=== PATIENT | female | born 1975 | race Caucasian/White ===

== ENCOUNTER 2017-12-11 18:18 | Emergency (ER) | payer MEDICAID ==
[~2017-12-11 18:18] MED LIST: FLO0.4C PO; GENT5DRO4 EACHEYE; HYDR-569 PO; NAPR500T6 PO; ONDA4TAB6 PO; ONDA8TAB9 PO
[2017-12-12] MEDS ORDERED: SULF1TAB49 PO (08:55)
== END 2017-12-11 19:46 | disposition left against medical advice (07) ==
LOC: ER 18:19
DX: M79.606 Pain in leg, unspecified (principal); Z53.21 Procedure and treatment not carried out due to patient leaving prior to being seen by health care provider

== ENCOUNTER 2017-12-12 08:36 | Emergency (ER) | payer MEDICAID ==
[~2017-12-12] VITALS: Ht 160 cm; Wt 100.7 kg
[2017-12-12] MEDS ORDERED: SULF1TAB49 PO (08:55)
[2017-12-12 09:17] VITALS: BP 146/92
== END 2017-12-12 09:18 | disposition home or self-care (01) ==
LOC: ER 08:36
DX: L03.115 Cellulitis of right lower limb (principal); L02.415 Cutaneous abscess of right lower limb; G89.29 Other chronic pain
CPT/HCPCS: 99283

== ENCOUNTER 2018-05-10 10:03 | Emergency (ER) | payer MEDICAID ==
[~2018-05-10] VITALS: Ht 152.4 cm; Wt 93.0 kg
[2018-05-10 10:07] VITALS: BP 136/65
== END 2018-05-10 10:30 | disposition home or self-care (01) ==
LOC: ER 10:03
DX: M76.61 Achilles tendinitis, right leg (principal); G89.29 Other chronic pain; Z79.899 Other long term (current) drug therapy
CPT/HCPCS: 99284; A6449

== ENCOUNTER 2018-07-07 16:21 | Emergency (ER) | payer MEDICAID ==
[~2018-07-07] VITALS: Ht 160 cm; Wt 102.6 kg
[~2018-07-07 16:21] MED LIST changes: +FLUC150T66 PO; +MYCOL30CR TP
[2018-07-07 16:32] VITALS: BP 140/83
[2018-07-07] MEDS ORDERED: ACYC400T PO (17:29)
== END 2018-07-07 18:00 | disposition home or self-care (01) ==
LOC: ER 16:21
DX: N89.8 Other specified noninflammatory disorders of vagina (principal); G89.29 Other chronic pain; Z79.2 Long term (current) use of antibiotics; Z79.899 Other long term (current) drug therapy
CPT/HCPCS: 99283

== ENCOUNTER 2019-01-16 08:59 | Emergency (ER) | payer MEDICAID ==
[~2019-01-16] VITALS: Ht 160 cm; Wt 100.0 kg
[~2019-01-16 08:59] MED LIST changes: -FLUC150T66 PO; +HYDR-4383 PO; -HYDR-569 PO
[2019-01-16 09:06] VITALS: BP 147/101
[2019-01-16] MEDS ORDERED: LIDOcaine 1% w/epiNEPHrine 1:200,000 30ml vial IM ONE (09:25)
--- NOTE | 2019-01-16 10:07 | NUR ---
PT GIVEN PANTIES AND FEMALE PAD FOR DRAINAGE COLLECTION AFTER I/D TO VAGINAL CYST. PT TOLERATES PROCEDURE WELL. AT BEDSIDE.
[2019-01-16] MEDS ORDERED: SULF1TAB49 PO (10:08)
[2019-01-16] MEDS ORDERED: CEPH-572 PO (10:08)
--- NOTE | 2019-01-16 10:10 | NUR ---
PT TAKEN BACK TO ROOM 12.
== END 2019-01-16 10:37 | disposition home or self-care (01) ==
LOC: ER 09:00
DX: N76.0 Acute vaginitis (principal); G89.29 Other chronic pain; Z98.890 Other specified postprocedural states; Z79.899 Other long term (current) drug therapy
CPT/HCPCS: 56405; 99283; J3490

== ENCOUNTER 2019-06-11 20:57 | Emergency (ER) | payer MEDICAID ==
[~2019-06-11] VITALS: Ht 157.5 cm; Wt 101.0 kg
[2019-06-11] MEDS ORDERED: cloNIDine 0.1 mg tablet PO ONE (21:30)
[2019-06-11] MEDS ORDERED: metoclopramide 5 mg/ml inj IM ONE (21:30)
[2019-06-11] MEDS ORDERED: diphenhydrAMINE 50 mg/ml inj IM ONE (21:30)
[2019-06-11] MEDS ORDERED: ketorolac trometh. 30mg/ml inj. IV ONE (21:30)
[2019-06-11] MEDS ORDERED: ketorolac tromethamine 15mg/ml inj. IM ONE (21:40)
--- NOTE | 2019-06-11 22:14 | NUR ---
PT DENIES ANY HEADACHE AT THIS TIME 010.
[2019-06-11 22:21] VITALS: BP 151/95
== END 2019-06-11 22:20 | disposition home or self-care (01) ==
LOC: ER 20:57
DX: R51 Headache (principal); H53.149 Visual discomfort, unspecified; R11.0 Nausea; G89.29 Other chronic pain; Z98.890 Other specified postprocedural states; Z79.899 Other long term (current) drug therapy
CPT/HCPCS: 70450; 96372; 99284; J1200; J1885; J2765

== ENCOUNTER 2019-06-27 16:36 | Emergency (ER) | payer MEDICAID ==
[~2019-06-27] VITALS: Ht 165.1 cm; Wt 100.0 kg
[2019-06-27 16:59] VITALS: BP 136/83
[2019-06-27] MEDS ORDERED: AZIT250T PO (17:25)
[2019-06-27] MEDS ORDERED: BENZ-16 PO (17:25)
== END 2019-06-27 18:01 | disposition home or self-care (01) ==
LOC: ER 16:36
DX: J06.9 Acute upper respiratory infection, unspecified (principal); R11.2 Nausea with vomiting, unspecified; G89.29 Other chronic pain; Z98.890 Other specified postprocedural states; Z79.899 Other long term (current) drug therapy
CPT/HCPCS: 99283

== ENCOUNTER 2019-08-03 15:36 | Emergency (ER) | payer MEDICAID ==
[~2019-08-03] VITALS: Ht 160 cm; Wt 95.0 kg
[~2019-08-03 15:36] MED LIST changes: +AZIT250T PO; +BENZ-16 PO
[2019-08-03] MEDS ORDERED: aspirin 325mg tablet PO ONE (16:00)
[2019-08-03 16:13] LABS: BASOPHILS # (AUTO) 0.1 X10'3 (0-0.2); BASOPHILS % (AUTO) 1.2 % (0-1); EOSINOPHILS # (AUTO) 0.1 X10'3 (0-0.9); EOSINOPHILS % (AUTO) 1.2 % (0-6); HEMATOCRIT 36.5 % (35.0-45.0); HEMOGLOBIN 12.5 g/dl (12.0-16.0); LYMPHOCYTES # (AUTO) 2.1 X10'3 (1.1-4.8); LYMPHOCYTES % (AUTO) 24.2 % (21-51); MEAN CORPUSCULAR HEMOGLOBIN 27.1 PG (27.0-31.0); MEAN CORPUSCULAR HGB CONC 34.2 g/dL (33.0-36.5); MEAN CORPUSCULAR VOLUME 79.3 FL (78-98); MEAN PLATELET VOLUME 7.8 FL (7.4-10.4); MONOCYTES # (AUTO) 0.6 X10'3 (0-0.9); MONOCYTES % (AUTO) 6.5 % (2-12); NEUTROPHILS # (AUTO) 5.8 X10'3 (1.8-7.7); NEUTROPHILS % (AUTO) 66.9 % (42-75); PLATELET COUNT 274 X10'3 (140-440); RED CELL DISTRIBUTION WIDTH 15.7 % (11.5-14.5); WHITE BLOOD COUNT 8.7 X10'3 (4.5-11.0)
[2019-08-03 16:23] LABS: ALBUMIN 3.6 G/DL (3.4-5.0); ALBUMIN/GLOBULIN RATIO 0.9 (1.1-1.5); ALKALINE PHOSPHATASE 103 IU/L (46-116); ANION GAP 9 (8-16); BILIRUBIN,TOTAL 0.3 MG/DL (0.1-1.0); BLOOD UREA NITROGEN 9 MG/DL (7-18); BUN/CREATININE RATIO 10.6 (6.6-38.0); CALCIUM 9.1 MG/DL (8.5-10.1); CHLORIDE 106 MMOL/L (99-107); CREATININE 0.85 MG/DL (0.40-0.90); SODIUM 141 MMOL/L (135-145); TOTAL CARBON DIOXIDE 25.6 MMOL/L (24-32); TOTAL PROTEIN 7.8 G/DL (6.4-8.2); eGFR 73 ML/MIN
[2019-08-03 16:24] LABS: GLUCOSE 114 MG/DL (70-104); POTASSIUM 3.7 MMOL/L (3.5-5.1)
[2019-08-03 16:25] LABS: PARTIAL THROMBOPLASTIN TIME 26 SECONDS (22-32)
[2019-08-03 16:39] LABS: ALANINE AMINOTRANSFERASE 24 U/L (12-78); ASPARTATE AMINO TRANSFERASE 23 U/L (10-37)
[2019-08-03 17:12] VITALS: BP 143/102
== END 2019-08-03 17:18 | disposition home or self-care (01) ==
LOC: ER 15:36
DX: R07.89 Other chest pain (principal); R20.2 Paresthesia of skin; G89.29 Other chronic pain; Z98.890 Other specified postprocedural states; Z79.899 Other long term (current) drug therapy
CPT/HCPCS: 36415; 71045; 80053; 84484; 85025; 85610; 85730; 93005; 99284

== ENCOUNTER 2020-03-17 21:34 | Emergency (ER) | payer MEDICAID ==
[~2020-03-17] VITALS: Ht 157.5 cm; Wt 101.5 kg
[2020-03-17 22:01] LABS: BASOPHILS # (AUTO) 0.1 X10'3 (0-0.2); BASOPHILS % (AUTO) 0.9 % (0-1); EOSINOPHILS # (AUTO) 0.1 X10'3 (0-0.9); EOSINOPHILS % (AUTO) 1.2 % (0-6); HEMATOCRIT 35.6 % (35.0-45.0); HEMOGLOBIN 11.8 g/dl (12.0-16.0); LYMPHOCYTES # (AUTO) 2.3 X10'3 (1.1-4.8); LYMPHOCYTES % (AUTO) 27.6 % (21-51); MEAN CORPUSCULAR HEMOGLOBIN 25.3 PG (27.0-31.0); MEAN CORPUSCULAR HGB CONC 33.2 g/dL (33.0-36.5); MEAN CORPUSCULAR VOLUME 76.1 FL (78-98); MEAN PLATELET VOLUME 7.7 FL (7.4-10.4); MONOCYTES # (AUTO) 0.6 X10'3 (0-0.9); MONOCYTES % (AUTO) 7.5 % (2-12); NEUTROPHILS # (AUTO) 5.3 X10'3 (1.8-7.7); NEUTROPHILS % (AUTO) 62.8 % (42-75); PLATELET COUNT 265 X10'3 (140-440); RED BLOOD COUNT 4.68 X10'6 (4.20-5.60); RED CELL DISTRIBUTION WIDTH 18.9 % (11.5-14.5); WHITE BLOOD COUNT 8.4 X10'3 (4.5-11.0)
[2020-03-17 22:12] LABS: TOTAL CARBON DIOXIDE 25.8 MMOL/L (24-32)
--- NOTE | 2020-03-17 22:30 | NUR ---
PT TO THE BATHROOM INDEPENDENTLY TO VOID ,FOR SPECIMAN , AMBULATED WITH STEADY GAIT .
[2020-03-17] MEDS ORDERED: hydrocortisone acetate 25mg rectal suppository RC PRN (22:35)
[2020-03-17] MEDS ORDERED: ondansetron 4mg rapidly disintigrating tab PO ONE (22:35)
[2020-03-17] MEDS ORDERED: pantoprazole 40mg Tablet.DR PO ONE (22:35)
[2020-03-17 22:36] LABS: ALANINE AMINOTRANSFERASE 18 U/L (12-78); ALBUMIN 3.7 G/DL (3.4-5.0); ALKALINE PHOSPHATASE 102 IU/L (46-116); ANION GAP 9 (8-16); ASPARTATE AMINO TRANSFERASE 13 U/L (10-37); BILIRUBIN,TOTAL 0.3 MG/DL (0.1-1.0); BLOOD UREA NITROGEN 11 MG/DL (7-18); BUN/CREATININE RATIO 12.2 (6.6-38.0); CALCIUM 9.1 MG/DL (8.5-10.1); CHLORIDE 107 MMOL/L (99-107); GLUCOSE 131 MG/DL (70-104); POTASSIUM 3.7 MMOL/L (3.5-5.1); SODIUM 142 MMOL/L (135-145); TOTAL PROTEIN 7.5 G/DL (6.4-8.2); eGFR 69 ML/MIN
[2020-03-17 22:42] LABS: CLARITY,URINE CLOUDY (Clear); COLOR,URINE YELLOW (Yellow); GLUCOSE, URINE NEGATIVE (Neg); KETONES,URINE NEGATIVE (Neg); LEUKOCYTE ESTERASE ,URINE LARGE (Neg); NITRITES, URINE NEGATIVE (Neg); OCCULT BLOOD,URINE MODERATE (Neg); PH,URINE 6.5 (4.8-8.0); PROTEIN,URINE NEGATIVE (Neg)
[2020-03-17 22:50] LABS: UA COLLECTION TYPE CLN CATCH MIDSTREAM
[2020-03-17 22:53] LABS: BACTERIA,URINE 2+ /HPF (Neg); SQUAMOUS EPITHELIAL CELL,UR FEW /LPF (FEW)
[2020-03-17] MEDS ORDERED: NITR100C6 PO (23:18)
[2020-03-17] MEDS ORDERED: HYDR25SU32 RC (23:18)
[2020-03-17] MEDS ORDERED: nitrofuran/nitrofuran macrocrysal 100 MG capsule PO ONE (23:20)
[2020-03-17 23:44] VITALS: BP 146/74
== END 2020-03-17 23:40 | disposition home or self-care (01) ==
LOC: ER 21:35
DX: K92.2 Gastrointestinal hemorrhage, unspecified (principal); N39.0 Urinary tract infection, site not specified; G89.29 Other chronic pain; Z98.890 Other specified postprocedural states; Z79.899 Other long term (current) drug therapy
CPT/HCPCS: 80053; 81001; 85025; 87088; 99284

== ENCOUNTER 2021-10-09 15:17 | Emergency (ER) | payer MEDICAID ==
[~2021-10-09] VITALS: Ht 160 cm; Wt 102.3 kg
[~2021-10-09 15:17] MED LIST changes: +HYDR25SU32 RC; +NITR100C6 PO
[2021-10-09 15:22] VITALS: BP 168/111
[2021-10-09] MEDS ORDERED: AMOX-422 PO (16:29)
[2021-10-09] MEDS ORDERED: amox tr/potassium clavulanate 875/125mg TAB PO ONE (16:35)
== END 2021-10-09 16:45 | disposition home or self-care (01) ==
LOC: ER 15:18
DX: S02.5XXA Fracture of tooth (traumatic), initial encounter for closed fracture (principal); K08.89 Other specified disorders of teeth and supporting structures; R22.0 Localized swelling, mass and lump, head; R68.84 Jaw pain; G89.29 Other chronic pain; Z87.440 Personal history of urinary (tract) infections; Z98.890 Other specified postprocedural states; Z79.2 Long term (current) use of antibiotics; Z79.899 Other long term (current) drug therapy; X58.XXXA Exposure to other specified factors, initial encounter; Y93.89 Activity, other specified; Y92.89 Other specified places as the place of occurrence of the external cause; Y99.8 Other external cause status
CPT/HCPCS: 99283

== ENCOUNTER 2022-03-26 16:03 | Emergency (ER) | payer MEDICAID ==
[~2022-03-26] VITALS: Ht 160 cm; Wt 99.0 kg
[2022-03-26 19:32] LABS: HCG SERUM QL NEGATIVE
[2022-03-26] MEDS ORDERED: ondansetron 4mg rapidly disintigrating tab PO ONE (19:45)
[2022-03-26 19:52] LABS: D-DIMER < 0.19 MG/L FEU (0-0.50)
[2022-03-26 20:25] VITALS: BP 161/95
== END 2022-03-26 20:41 | disposition home or self-care (01) ==
LOC: ER 16:04
DX: M79.605 Pain in left leg (principal); G89.29 Other chronic pain; Z79.899 Other long term (current) drug therapy
CPT/HCPCS: 36415; 84703; 85379; 99283

== ENCOUNTER 2022-05-20 11:57 | Emergency (ER) | payer MEDICAID ==
[~2022-05-20] VITALS: Ht 160 cm; Wt 102.0 kg
[~2022-05-20 11:57] MED LIST changes: -MYCOL30CR TP; +NYST30CR35 TP
[2022-05-20 12:53] LABS: BASOPHILS # (AUTO) 0.1 X10'3 (0-0.2); BASOPHILS % (AUTO) 0.9 % (0-1); EOSINOPHILS # (AUTO) 0.1 X10'3 (0-0.9); EOSINOPHILS % (AUTO) 1.2 % (0-6); HEMATOCRIT 37.4 % (35.0-45.0); HEMOGLOBIN 12.5 g/dl (12.0-16.0); LYMPHOCYTES # (AUTO) 1.3 X10'3 (1.1-4.8); LYMPHOCYTES % (AUTO) 17.7 % (21-51); MEAN CORPUSCULAR HGB CONC 33.3 g/dL (33.0-36.5); MEAN CORPUSCULAR VOLUME 84.1 FL (78-98); MEAN PLATELET VOLUME 7.8 FL (7.4-10.4); MONOCYTES # (AUTO) 0.5 X10'3 (0-0.9); MONOCYTES % (AUTO) 6.5 % (2-12); NEUTROPHILS # (AUTO) 5.5 X10'3 (1.8-7.7); NEUTROPHILS % (AUTO) 73.7 % (42-75); PLATELET COUNT 249 X10'3 (140-440); RED BLOOD COUNT 4.45 X10'6 (4.20-5.60); RED CELL DISTRIBUTION WIDTH 14.9 % (11.5-14.5); WHITE BLOOD COUNT 7.5 X10'3 (4.5-11.0)
[2022-05-20 13:02] LABS: ALANINE AMINOTRANSFERASE 33 U/L (12-78); ALBUMIN 4.1 G/DL (3.4-5.0); ALBUMIN/GLOBULIN RATIO 1.2 (1.1-1.5); ALKALINE PHOSPHATASE 70 IU/L (46-116); ANION GAP 10 (8-16); ASPARTATE AMINO TRANSFERASE 23 U/L (10-37); BILIRUBIN,TOTAL 0.6 MG/DL (0.1-1.0); BLOOD UREA NITROGEN 12 MG/DL (7-18); BUN/CREATININE RATIO 16.4 (6.6-38.0); CALCIUM 9.1 MG/DL (8.5-10.1); CHLORIDE 106 MMOL/L (99-107); CREATININE 0.73 MG/DL (0.40-0.90); GLUCOSE 96 MG/DL (70-104); POTASSIUM 3.8 MMOL/L (3.5-5.1); SODIUM 141 MMOL/L (135-145); TOTAL CARBON DIOXIDE 24.9 MMOL/L (24-32); TOTAL PROTEIN 7.6 G/DL (6.4-8.2); eGFR 87 ML/MIN
[2022-05-20 17:02] VITALS: BP 150/90
[2022-05-20] MEDS ORDERED: ATOR40TA71 PO (17:04)
[2022-05-20] MEDS ORDERED: HYDR25TA4 PO (17:04)
== END 2022-05-20 17:36 | disposition home or self-care (01) ==
LOC: ER 11:58
DX: I10 Essential (primary) hypertension (principal); E78.5 Hyperlipidemia, unspecified; G89.29 Other chronic pain
CPT/HCPCS: 36415; 71045; 80053; 83880; 84484; 85025; 93005; 99285; A4615

== ENCOUNTER 2022-07-17 13:57 | Emergency (ER) | payer MEDICAID ==
[~2022-07-17] VITALS: Ht 160 cm; Wt 95.5 kg
[~2022-07-17 13:57] MED LIST changes: +ATOR40TA71 PO; +HYDR25TA4 PO
[2022-07-17 14:12] VITALS: BP 125/63
[2022-07-17] MEDS ORDERED: CIPR-259 PO (15:59)
== END 2022-07-17 16:19 | disposition home or self-care (01) ==
LOC: ER 13:57
DX: N75.0 Cyst of Bartholin's gland (principal); G89.29 Other chronic pain; Z98.890 Other specified postprocedural states
CPT/HCPCS: 99284

== ENCOUNTER → 2024-04-09 | Outpatient (CLI) | payer MEDICAID ==
[~2024-04-09] MED LIST changes: +GEN0.3OS EACHEYE; -GENT5DRO4 EACHEYE
== END | disposition home or self-care (01) ==
LOC: CARD DIAG 10:00
PROVIDERS: ATTEND Family Medicine
DX: R01.1 Cardiac murmur, unspecified (principal)
CPT/HCPCS: 93306

== ENCOUNTER 2024-05-08 12:17 | Emergency (ER) | payer MEDICAID ==
[~2024-05-08] VITALS: Ht 160 cm; Wt 99.2 kg
[2024-05-08 12:31] VITALS: BP 173/74; PULSE 98; RESP 18; O2SAT 98
[2024-05-08] MEDS ORDERED: METH-798 PO (13:26)
[2024-05-08 14:04] VITALS: TEMP 98
== END 2024-05-08 14:05 | disposition home or self-care (01) ==
LOC: ER 12:18
DX: S90.01XA Contusion of right ankle, initial encounter (principal); G89.29 Other chronic pain; M54.2 Cervicalgia; M25.571 Pain in right ankle and joints of right foot; Z79.899 Other long term (current) drug therapy; Z79.2 Long term (current) use of antibiotics; Z79.1 Long term (current) use of non-steroidal anti-inflammatories (NSAID); Z98.890 Other specified postprocedural states; V49.88XA Car occupant (driver) (passenger) injured in other specified transport accidents, initial encounter; Y93.89 Activity, other specified; Y92.89 Other specified places as the place of occurrence of the external cause; Y99.8 Other external cause status
CPT/HCPCS: 73610; 99283; A6449

== ENCOUNTER 2024-10-31 12:49 | Emergency (ER) | payer MEDICAID ==
[~2024-10-31] VITALS: Ht 160 cm; Wt 86.5 kg
[~2024-10-31 12:49] MED LIST changes: +METH-798 PO; +NAPR-1480 PO; -NAPR500T6 PO
[2024-10-31 13:00] VITALS: TEMP 98.3
[2024-10-31 13:51] LABS: BASOPHILS # (AUTO) 0.1 X10'3 (0-0.2); BASOPHILS % (AUTO) 0.7 % (0-1); EOSINOPHILS # (AUTO) 0.1 X10'3 (0-0.9); EOSINOPHILS % (AUTO) 1.3 % (0-6); HEMATOCRIT 31.9 % (35.0-45.0); HEMOGLOBIN 10.4 g/dl (12.0-16.0); LYMPHOCYTES # (AUTO) 1.5 X10'3 (1.1-4.8); LYMPHOCYTES % (AUTO) 18.2 % (21-51); MEAN CORPUSCULAR HEMOGLOBIN 24.3 PG (27.0-31.0); MEAN CORPUSCULAR HGB CONC 32.7 g/dL (33.0-36.5); MEAN CORPUSCULAR VOLUME 74.4 FL (78-98); MEAN PLATELET VOLUME 7.7 FL (7.4-10.4); MONOCYTES # (AUTO) 0.5 X10'3 (0-0.9); NEUTROPHILS # (AUTO) 5.9 X10'3 (1.8-7.7); NEUTROPHILS % (AUTO) 73.8 % (42-75); PLATELET COUNT 302 X10'3 (140-440); RED BLOOD COUNT 4.29 X10'6 (4.20-5.60); RED CELL DISTRIBUTION WIDTH 15.3 % (11.5-14.5)
[2024-10-31 13:56] LABS: URINE HCG NEGATIVE (NEG)
[2024-10-31 14:01] LABS: BILIRUBIN,URINE NEGATIVE (Neg); CLARITY,URINE CLEAR (Clear); COLOR,URINE STRAW (Yellow); GLUCOSE, URINE NEGATIVE (Neg); KETONES,URINE NEGATIVE (Neg); LEUKOCYTE ESTERASE ,URINE TRACE (Neg); NITRITES, URINE NEGATIVE (Neg); OCCULT BLOOD,URINE MODERATE (Neg); PROTEIN,URINE NEGATIVE (Neg); UROBILINOGEN,URINE 0.2 E.U/dL (0.2-1.0)
[2024-10-31 14:06] LABS: UA COLLECTION TYPE CLN CATCH MIDSTREAM
[2024-10-31 14:08] LABS: WBC,URINE 0-4 /HPF (0-4)
[2024-10-31 14:08] LABS: ALANINE AMINOTRANSFERASE 29 U/L (12-78); ALBUMIN 3.8 G/DL (3.4-5.0); ALBUMIN/GLOBULIN RATIO 1.2 (1.1-1.5); ALKALINE PHOSPHATASE 144 IU/L (46-116); ANION GAP 8 (8-16); ASPARTATE AMINO TRANSFERASE 19 U/L (10-37); BILIRUBIN,TOTAL 0.5 MG/DL (0.1-1.0); BLOOD UREA NITROGEN 7 MG/DL (7-18); BUN/CREATININE RATIO 9.5 (10.0-20.0); CALCIUM 8.1 MG/DL (8.5-10.1); CHLORIDE 109 MMOL/L (99-107); CREATININE 0.74 MG/DL (0.40-0.90); GLUCOSE 96 MG/DL (70-104); LIPASE 30 U/L (16-77); POTASSIUM 3.7 MMOL/L (3.5-5.1); SODIUM 144 MMOL/L (135-145); TOTAL CARBON DIOXIDE 26.8 MMOL/L (24-32); TOTAL PROTEIN 7.1 G/DL (6.4-8.2); eCRCL 78 ML/MIN; eGFR 84 ML/MIN
[2024-10-31 14:09] LABS: BACTERIA,URINE FEW /HPF (Neg); MUCUS STRANDS NONE SEEN /LPF (Neg); SQUAMOUS EPITHELIAL CELL,UR MODERATE /LPF (FEW); TRANSITIONAL EPI CELLS,URINE FEW /HPF
[2024-10-31] MEDS ORDERED: DOCU-171 PO (18:57)
[2024-10-31] MEDS ORDERED: AMOX-419 PO (18:57)
[2024-10-31 19:04] VITALS: BP 158/104; PULSE 66; RESP 16; O2SAT 98
== END 2024-10-31 19:06 | disposition home or self-care (01) ==
LOC: ER 12:49
DX: K64.9 Unspecified hemorrhoids (principal); K62.5 Hemorrhage of anus and rectum; Z98.890 Other specified postprocedural states
CPT/HCPCS: 36415; 80053; 81001; 81025; 83690; 85025; 87088; 99283

== ENCOUNTER 2025-02-24 07:20 | Emergency (ER) | payer MEDICAID ==
[~2025-02-24] VITALS: Ht 160 cm; Wt 100.0 kg
[~2025-02-24 07:20] MED LIST changes: +DOCU-171 PO; -FLO0.4C PO; -NYST30CR35 TP; +NYST30CR46 TP; +TAMS-55 PO
[2025-02-24 07:27] VITALS: TEMP 97.3
[2025-02-24] MEDS: meclizine 12.5mg tablet PO ONE (07:46)
[2025-02-24 07:55] LABS: BASOPHILS # (AUTO) 0.1 X10'3 (0-0.2); EOSINOPHILS # (AUTO) 0.1 X10'3 (0-0.9); EOSINOPHILS % (AUTO) 1.2 % (0-6); HEMATOCRIT 33.2 % (35.0-45.0); HEMOGLOBIN 10.4 g/dl (12.0-16.0); LYMPHOCYTES # (AUTO) 1.2 X10'3 (1.1-4.8); LYMPHOCYTES % (AUTO) 17.6 % (21-51); MEAN CORPUSCULAR HGB CONC 31.2 g/dL (33.0-36.5); MEAN CORPUSCULAR VOLUME 70.4 FL (78-98); MEAN PLATELET VOLUME 7.4 FL (7.4-10.4); MONOCYTES # (AUTO) 0.5 X10'3 (0-0.9); MONOCYTES % (AUTO) 6.6 % (2-12); NEUTROPHILS # (AUTO) 5.2 X10'3 (1.8-7.7); NEUTROPHILS % (AUTO) 73.6 % (42-75); PLATELET COUNT 291 X10'3 (140-440); RED BLOOD COUNT 4.72 X10'6 (4.20-5.60); RED CELL DISTRIBUTION WIDTH 16.7 % (11.5-14.5)
[2025-02-24 08:05] LABS: PROTHROMBIN TIME 10.1 SECONDS (9.0-12.0)
[2025-02-24 08:07] LABS: ALANINE AMINOTRANSFERASE 25 U/L (12-78); ALBUMIN 3.4 G/DL (3.4-5.0); ALBUMIN/GLOBULIN RATIO 1.1 (1.1-1.5); ALKALINE PHOSPHATASE 124 IU/L (46-116); ANION GAP 6 (8-16); ASPARTATE AMINO TRANSFERASE 18 U/L (10-37); BILIRUBIN,TOTAL 0.3 MG/DL (0.1-1.0); BLOOD UREA NITROGEN 8 MG/DL (7-18); BUN/CREATININE RATIO 10.3 (10.0-20.0); CALCIUM 8.5 MG/DL (8.5-10.1); CHLORIDE 109 MMOL/L (99-107); CREATININE 0.78 MG/DL (0.40-0.90); GLUCOSE 118 MG/DL (70-104); SODIUM 142 MMOL/L (135-145); TOTAL CARBON DIOXIDE 27.2 MMOL/L (24-32); TOTAL PROTEIN 6.5 G/DL (6.4-8.2); eCRCL 74 ML/MIN; eGFR 79 ML/MIN
--- NOTE | 2025-02-24 08:12 | RADIOLOGY REPORT ---
EXAM: CT CT HEAD INDICATION: dizziness CVA TECHNIQUE: CT of the head without intravenous contrast. Coronal and sagittal reformatted images are s ubmitted. Radiation Dose : 1. Head: CT Dose: CTDI volume is 60.3 mGy. Dose-length product is 1013.3 mGy*cm The dose indicators for CT are the volume Computed Tomography (CT) Dose Index (CTDIvol) and the Dose Length Product (DLP), and are measured in units of mGy and mGy-cm, respectively. These indicators are not patient dose, but values generated from the CT scanner acquisition factors. The report includes radiation exposure data for exposures received during this examination. All CT scans at this medical facility are performed using dose modulation techniques as appropriate to a performed exam including the following: Automated exposure control was utilized; adjustment of the MA and/or KV according to patient size; and use of iterative reconstruction technique. COMPARISON: CT HEAD on DOS: 06/11/19 FINDINGS: There is no evidence of acute intracranial hemorrhage, extra-axial collection, mass effect, midline s hift, herniation or hydrocephalus. The ventricles, sulci and cisterns are age appropriate. The ritter-white differentiation is intact. The visualized paranasal sinuses and mastoid air cells are clear. No depressed calvarial fracture. The surrounding soft tissues are unremarkable. IMPRESSION: 1. No evidence of acute intracranial abnormality.
--- NOTE | 2025-02-24 08:22 | Physician Documentation ---
History of Present Illness ~ Chief Complaint: Dizziness Stated Complaint: DIZZINESS/SHAKES/HEADACHE/COUGH Time Seen by MD: 07:35 OK to notify your PCP?: Yes [facility] Mode of Arrival: Dropped Off HPI 49-year-old female presents to the emergency department with one day of dizziness, patient had a headache a couple of days ago and took some Motrin for this, denies fever however today she feels like she can not walk in a straight line. She denies any head trauma. Timing / Duration: days Prehospital Care: none Weakness Location: none Activities at Onset: none Symptoms: imbalance History of: diabetes; No History of: CVA, TIA Medication Reconciliation Allergies: Coded Allergies: No Known Allergies (Unverified , 02/24/25) Scheduled Atorvastatin Calcium (Atorvastatin Calcium), 1 TABLET PO DAILY Azithromycin (Zithromax), 1 DOSPAK PO UD Benzonatate (Tessalon Perle), 1 CAP PO Q8H Docusate Sodium (Dulcolax Stool Softener), 1 CAP PO DAILY Gentamicin Sulfate (Gentak), 2 DROP EACHEYE TID Hydrochlorothiazide (Hydrochlorothiazide), 1 TAB PO DAILY Hydrocortisone Acetate (Anusol-Hc), 1 SUPP RC Q12H Methocarbamol (Methocarbamol), 1 TAB PO Q8H Naproxen (Naproxen), 1 TAB PO Q12H Nitrofurantoin Monohyd/M-Cryst (Macrobid 100 mg Capsule), 1 CAP PO Q12H Nystatin/Triamcin Cream* (Mycolog Cream*), 1 APPLIC TP BID Tamsulosin Hcl* (Flomax*), 1 CAP PO DAILY Scheduled PRN Hydrocodone/Acetaminophen ([place] 5-325 Tablet), 1-2 TABLET PO Q4H PRN for pain Ondansetron (Zofran Odt), 8 MG PO QID PRN for nausea/vomiting Ondansetron Hcl (Zofran), 1 TABLET PO Q6H PRN for nausea/vomiting Past Medical History Past Medical History: Headache, Constipation, Hemorrhoids, *RENAL/*, UTI, Chronic Pain, Extremity Fracture Past Surgical History: Alcohol Use: None Drug Use: none Lives with: Family Lives In: Home Occupation: employed Review of Systems All Other Systems at this time: Reviewed and Negative Constitutional: Reports: see HPI Neurological: Reports: headache, dizziness Physical Exam Vital Signs: RN Vital Signs have been reviewed: Yes, Temperature: 97.3, Source: Temporal, Heart Rate: 74, Respiratory Rate: 16, BP: 147/92, Pulse Oximetry: 98, Weight: 100.000 Pulse Oximetry Reflects: adequate oxygenation General Appearance: alert, no apparent distress; No: confused, ill-appearing Neck: non-tender, full range of motion Head: normal Pupils/EOM/Fundus: PERRLA; No: nystagmus EENT: normal ENT inspection Ear: normal Respiratory: lungs clear Chest: no accessory muscle use; No: retractions Cardiovascular: normal peripheral pulses, regular rate, rhythm, no edema Gastrointestinal: normal palpation, non-tender, bowels sounds present Motor / Sensory: no motor deficit, no sensory deficit; No: pronator drift (R), pronator drift (L) Cerebellar Function: ataxia; No: tremor Progress Results/Orders Results/Orders Orders - GREGORY GIRON DO Ct Head (02/24/25 07:57) Mri Head (02/24/25 09:00) Completed Orders - GREGORY GIRON DO Meclizine Tablets (Antivert Tablet) (02/24/25 07:40) Ct Head (02/24/25 07:57) Cbc/Diff (02/24/25 07:40) CMP (02/24/25 07:40) Urinalysis, Cult If Indicated (02/24/25 07:40) Pt Inr (02/24/25 07:40) Mri Head (02/24/25 09:00) Medications Received in ER Medications (Trade) Dose Ordered Sig/Taylor Route PRN Reason Start Time Stop Time Status Last Admin Dose Admin (Antivert tablet) 25 mg ONCE ONCE PO 02/24/25 07:40 02/24/25 07:42 DC 02/24/25 07:46 25 MG Vital Signs 02/24/25 02/24/25 02/24/25 07:27 07:40 08:50 Temp 97.3 Pulse 74 73 Resp 18 16 18 B/P (MAP) 147/92 145/84 (104) Pulse Ox 98 99 O2 Flow Rate 0 Laboratory Tests Test 02/24/25 07:43 02/24/25 08:55 White Blood Count 7.0 Red Blood Count 4.72 Hemoglobin 10.4 L Hematocrit 33.2 L Mean Corpuscular Volume 70.4 L Mean Corpuscular Hemoglobin 22.0 L Mean Corpuscular Hemoglobin Concent 31.2 L Red Cell Distribution Width 16.7 H Platelet Count 291 Mean Platelet Volume 7.4 Neutrophils (%) (Auto) 73.6 Lymphocytes (%) (Auto) 17.6 L Monocytes (%) (Auto) 6.6 Eosinophils (%) (Auto) 1.2 Basophils (%) (Auto) 1.0 Neutrophils # (Auto) 5.2 Lymphocytes # (Auto) 1.2 Monocytes # (Auto) 0.5 Eosinophils # (Auto) 0.1 Basophils # (Auto) 0.1 CBC Comment Prothrombin Time 10.1 INR International Normalized Ratio 1.0 Coagulation Comments Sodium Level 142 Potassium Level 4.0 Chloride Level 109 H Carbon Dioxide Level 27.2 Anion Gap 6 L Blood Urea Nitrogen 8 Creatinine 0.78 Estimated GFR/1.73 m2 79 BUN/Creatinine Ratio 10.3 Glucose Level 118 H Calcium Level 8.5 Total Bilirubin 0.3 Aspartate Amino Transf (AST/SGOT) 18 Alanine Aminotransferase (ALT/SGPT) 25 Alkaline Phosphatase 124 H Total Protein 6.5 Albumin 3.4 Globulin 3.1 Albumin/Globulin Ratio 1.1 Chemistry Comments Urine Specimen Description Cln catch midstream Urine Color Straw Urine Clarity Clear Urine pH 6.0 Urine Specific [place] <=1.005 Urine Protein Negative Urine Glucose (UA) Negative Urine Ketones Negative Urine Occult Blood Negative Urine Nitrite Negative Urine Bilirubin Negative Urine Urobilinogen 0.2 Urine Leukocyte Esterase Negative Urine Culture Indicated Not ind Volume Urine Centrifuged 10 ml Urine Comment EKG/XRAY/CT/US/VASC/MRI CT : [address] [address] CAT SCAN Patient: EDDIE HOU Medical Record: [id number] [facility] : 1975, Age: 49 Sex: Female Location: ER Patient Status: [facility] ER Service Date/Time: 02/24/25756 Ordering Physician: GREGORY GIRON DO Exam: CT HEAD EXAM: CT CT HEAD INDICATION: dizziness CVA TECHNIQUE: CT of the head without intravenous contrast. Coronal and sagittal re formatted images are submitted. Radiation Dose : 1. Head: CT Dose: CTDI volume is 60.3 mGy. Dose-length product is 1013.3 mGy*cm The dose indicators for CT are the volume Computed Tomography (CT) Dose Index (CTDIvol) and the Dose Length Product (DLP), and are measured in units of mGy and mGy-cm, respectively. These indicators are not patient dose, but values generated from the CT scanner acquisition factors. The report includes radiation exposure data for exposures received during this examination. All CT scans at this medical facility are performed using dose modulation techniques as appropriate to a performed exam including the following: Automated exposure control was utilized; adjustment of the MA and/or KV according to patient size; and use of iterative reconstruction technique. COMPARISON: CT HEAD on DOS: 06/11/19 FINDINGS: There is no evidence of acute intracranial hemorrhage, extra-axial collection, mass effect, midline shift, herniation or hydrocephalus. The ventricles, sulci and cisterns are age appropriate. The ritter-white differentiation is intact. The visualized paranasal sinuses and mastoid air cells are clear. No depressed calvarial fracture. The surrounding soft tissues are unremarkable. IMPRESSION: 1. No evidence of acute intracranial abnormality. Electronically Signed by:DAVID MCCLURE MD Date & Time: 02/24/25808 Dictated by: DAVID MCCLURE MD Dictation date and time: 02/24/25808 Primary Care Provider: NO PRIMARY CARE PROVIDER cc: GREGORY GIRON DO ~ MRI : Impression [address] [address] MRI Patient: EDDIE HOU Medical Record: [id number] [facility] : 1975, Age: 49 Sex: Female Location: ER Patient Status: REG ER Service Date/Time: 02/24/25899 Ordering Physician: GREGORY GIRON DO Exam: MRI HEAD MRI BRAIN WITHOUT CONTRAST CLINICAL HISTORY: Ataxia, questionable CVA TECHNIQUE: Multiplanar, multisequence MR images of the brain without intravenous contrast. Comparison: CT CT HEAD on DOS: 02/24/25, CT HEAD on DOS: 06/11/19 FINDINGS: There is no restricted diffusion. The ritter and white matter signal is appropriate. There is no evidence of hemorrhage, mass, mass effect or midline shift. There is no hydrocephalus or extra-axial fluid collection. The visualized intracranial vasculature demonstrates appropriate flow-voids. The sagittal midline structures appear unremarkable. The craniocervical junction is within normal limits. The calvarium demonstrates normal marrow signal. The paranasal sinuses and mastoid air cells are clear. IMPRESSION: 1. There is no acute intracranial process. HS:Y Electronically Signed by:WILL AQUINO MD Date & Time: 02/24/25941 Dictated by: WILL AQUINO MD Dictation date and time: 02/24/25941 Primary Care Provider: NO PRIMARY CARE PROVIDER cc: GREGORY GIRON DO ~ Medical Decision Making Findings Reviewed MRI and CT, no acute stroke, patient's symptoms resolved with meclizine likely indicating simple vertigo, differentials included stroke, brain tumor, Meniere's disease, vertigo, mastoiditis among others. Differential Dx:Considerations: Include: dehydration, dysrhythmia, labyrinthitis, Meniere's disease, TIA, VBI, vertigo central, vertigo peripheral, vestibular neuronitis Departure Disposition: HOME / SELF CARE / HOMELESS Impression: Primary Impression: Vertigo Additional Impression: Dizziness Discharge Instructions: Dizziness, Near-Syncope Additional Instructions: CT scan and MRI did not show any evidence of stroke likely you have vertigo please use the meclizine as directed, follow up with your regular doctor they may refer you to physical therapy for vestibular therapy, you can try using Apley's maneuver at home which we discussed in the emergency department, sitting up bed turning her head left or right and lie backwards in wait for 45 seconds before repeating with the opposite direction. Referrals: NO PRIMARY CARE PROVIDER (PCP) Prescriptions Meclizine HCl (Meclizine HCl) 25 Mg Tablet 1 TABLET PO TID PRN PRN for vertigo, #20 TABLET Prov: GREGORY GIRON DO 02/24/25 Education Educated: Patient Educated regarding: diagnosis, treatment, prognosis Signature Scribe Signature: none Attestation: Dictated by myself GREGORY GIRON DO February 24, 2025 08:22
[2025-02-24 09:12] LABS: BILIRUBIN,URINE NEGATIVE (Neg); CLARITY,URINE CLEAR (Clear); COLOR,URINE STRAW (Yellow); GLUCOSE, URINE NEGATIVE (Neg); KETONES,URINE NEGATIVE (Neg); LEUKOCYTE ESTERASE ,URINE NEGATIVE (Neg); NITRITES, URINE NEGATIVE (Neg); OCCULT BLOOD,URINE NEGATIVE (Neg); PROTEIN,URINE NEGATIVE (Neg); UROBILINOGEN,URINE 0.2 E.U/dL (0.2-1.0)
[2025-02-24 09:21] LABS: UA COLLECTION TYPE CLN CATCH MIDSTREAM
--- NOTE | 2025-02-24 09:44 | RADIOLOGY REPORT ---
MRI BRAIN WITHOUT CONTRAST CLINICAL HISTORY: Ataxia, questionable CVA TECHNIQUE: Multiplanar, multisequence MR images of the brain without intravenous contrast. Comparison: CT CT HEAD on DOS: 02/24/25, CT HEAD on DOS: 06/11/19 FINDINGS: There is no restricted diffusion. The ritter and white matter signal is appropriate. There is no eviden ce of hemorrhage, mass, mass effect or midline shift. There is no hydrocephalus or extra-axial fluid collection. The visualized intracranial vasculature demonstrates appropriate flow-voids. The sagittal midline structures appear unremarkable. The craniocervical junction is within normal limits. The jessica varium demonstrates normal marrow signal. The paranasal sinuses and mastoid air cells are clear. IMPRESSION: 1. There is no acute intracranial process. HS:Y
[2025-02-24] MEDS ORDERED: MECL-302 PO (10:21)
[2025-02-24 10:31] VITALS: BP 130/82; PULSE 65; RESP 18; O2SAT 98
== END 2025-02-24 10:33 | disposition home or self-care (01) ==
LOC: ER 07:21
DX: R42 Dizziness and giddiness (principal); R51.9 Headache, unspecified; E11.9 Type 2 diabetes mellitus without complications; Z86.73 Personal history of transient ischemic attack (TIA), and cerebral infarction without residual deficits; Z79.899 Other long term (current) drug therapy; Z98.890 Other specified postprocedural states
CPT/HCPCS: 36415; 70450; 70551; 80053; 81003; 85025; 85610; 99284; J8597

== ENCOUNTER 2025-06-17 13:29 | Emergency (ER) | payer MEDICAID ==
[~2025-06-17] VITALS: Ht 160 cm; Wt 100.0 kg
[~2025-06-17 13:29] MED LIST changes: +MECL-302 PO
[2025-06-17 15:38] LABS: MEAN PLATELET VOLUME 8.1 FL (7.4-10.4); RED CELL DISTRIBUTION WIDTH 17.9 % (11.5-14.5)
[2025-06-17 15:42] LABS: CREATININE 0.59 MG/DL (0.40-0.90); TOTAL CARBON DIOXIDE 25.9 MMOL/L (24-32); eCRCL 96 ML/MIN; eGFR > 90 ML/MIN
[2025-06-17] MEDS ORDERED: NORG1TAB90 PO (16:06)
--- NOTE | 2025-06-17 16:07 | Physician Documentation ---
History of Present Illness ~ Chief Complaint: Vaginal Bleeding Stated Complaint: VAGINAL BLEEDING Time Seen by MD: 14:39 Primary Medical Doctor: [facility] Mode of Arrival: EMS HPI 50-year-old female presents to the ED with a complaint of ongoing vaginal bleeding. She states that she has had irregular periods for quite some time. She said that her chainstitch felled seam operator placed her on oral contraceptives to help with the vaginal bleeding during her menstrual cycles. She has has since stopped taking contraceptive. In March she had her last menstrual period which carried over into April. She started having symptoms patient was spotting a proximally a week and a half ago.. She has a known history of iron-deficiency anemia she is supposed to be taking iron however for unknown reasons she has been unable to obtain her prescription. Reports tiredness and fatigue when traversing stairs. She is today she says she has only gone through a single pad. Day of Onset: Jun 17, 2025 Medication Reconciliation Allergies: Coded Allergies: No Known Allergies (Unverified , 02/24/25) Scheduled Atorvastatin Calcium (Atorvastatin Calcium), 1 TABLET PO DAILY Azithromycin (Zithromax), 1 DOSPAK PO UD Benzonatate (Tessalon Perle), 1 CAP PO Q8H Docusate Sodium (Dulcolax Stool Softener), 1 CAP PO DAILY Gentamicin Sulfate (Gentak), 2 DROP EACHEYE TID Hydrochlorothiazide (Hydrochlorothiazide), 1 TAB PO DAILY Hydrocortisone Acetate (Anusol-Hc), 1 SUPP RC Q12H Methocarbamol (Methocarbamol), 1 TAB PO Q8H Naproxen (Naproxen), 1 TAB PO Q12H Nitrofurantoin Monohyd/M-Cryst (Macrobid 100 mg Capsule), 1 CAP PO Q12H Norgestimate-Ethinyl Estradiol (Ortho Tri-Cyclen), 1 TAB PO DAILY Nystatin/Triamcin Cream* (Mycolog Cream*), 1 APPLIC TP BID Tamsulosin Hcl* (Flomax*), 1 CAP PO DAILY Scheduled PRN Hydrocodone/Acetaminophen ([place] 5-325 Tablet), 1-2 TABLET PO Q4H PRN for pain Meclizine HCl (Meclizine HCl), 1 TABLET PO TID PRN PRN for vertigo Ondansetron (Zofran Odt), 8 MG PO QID PRN for nausea/vomiting Ondansetron Hcl (Zofran), 1 TABLET PO Q6H PRN for nausea/vomiting Past Medical History Past Medical History: Headache, Constipation, Hemorrhoids, *RENAL/*, UTI, Chronic Pain, Extremity Fracture Past Surgical History: Smoking Status: Never smoker Alcohol Use: None Drug Use: none Lives with: Family Lives In: Home Occupation: employed Review of Systems All Other Systems at this time: Reviewed and Negative ROS As stated above in the HPI, otherwise all systems are reviewed and negative. Physical Exam Vital Signs: Temperature: 97.9, Source: Oral, Heart Rate: 80, Respiratory Rate: 19, BP: 119/68, Pulse Oximetry: 98, Weight: 100.000 Oxygen Flow Rate: 0 Physical Exam General: Alert, no apparent distress. Neck: Full range of motion. Respiratory: Lungs clear, no respiratory distress. Chest: No accessory muscle use. Cardiovascular: Regular rate and rhythm, no murmurs. Gastrointestinal: Soft, nontender, nondistended. Bowels sounds present. Genitourinary: Deferred Neurologic: Oriented x4. Psychiatric: Normal mood and affect. Skin: pale, warm and dry. No edema, no ecchymosis. Progress Results/Orders Results/Orders Completed Orders - HARDIK GAY MANAGER BUSINESS CONTINUITY BMP (06/17/25 15:33) Cbc/Diff (06/17/25 15:33) Vital Signs 06/17/25 06/17/25 06/17/25 13:34 13:40 15:35 Temp 97.9 97.9 Pulse 91 80 Resp 16 19 B/P (MAP) 140/59 119/68 (85) Pulse Ox 99 98 O2 Flow Rate 0 0 Laboratory Tests Test 06/17/25 13:35 06/17/25 13:55 Sodium Level 140 Potassium Level 4.0 Chloride Level 106 Carbon Dioxide Level 25.9 Anion Gap 8 Blood Urea Nitrogen 6 L Creatinine 0.59 Estimated GFR/1.73 m2 > 90 BUN/Creatinine Ratio 10.2 Glucose Level 90 Calcium Level 9.1 Albumin 3.7 Chemistry Comments White Blood Count 10.0 Red Blood Count 3.70 L Hemoglobin 8.4 L Hematocrit 26.5 L Mean Corpuscular Volume 71.7 L Mean Corpuscular Hemoglobin 22.8 L Mean Corpuscular Hemoglobin Concent 31.7 L Red Cell Distribution Width 17.9 H Platelet Count 363 Mean Platelet Volume 8.1 Neutrophils (%) (Auto) 76.6 H Lymphocytes (%) (Auto) 13.8 L Monocytes (%) (Auto) 7.9 Eosinophils (%) (Auto) 0.7 Basophils (%) (Auto) 1.0 Neutrophils # (Auto) 7.7 Lymphocytes # (Auto) 1.4 Monocytes # (Auto) 0.8 Eosinophils # (Auto) 0.1 Basophils # (Auto) 0.1 CBC Comment Medical Decision Making Findings Although this patient is clearly deficient in iron and has current anemia partially secondary to menorrhagia along with having underlying iron-deficiency anemia. She is not meet criteria for a transfusion at this time and she presents as not being acutely ill other than having ongoing and diminishing vaginal bleed. At this time I am going to start her back on oral contraceptives and I am going to send her a new script of ferrous sulfate Departure Disposition: HOME / SELF CARE / HOMELESS Impression: Primary Impression: Vaginal bleeding Additional Impression: Menorrhagia Condition: Stable Discharge Instructions: Dysfunctional Uterine Bleeding Referrals: NO PRIMARY CARE PROVIDER (PCP) Prescriptions Ferrous Sulfate* (Ferrous Sulfate*) 325 Mg Tablet 1 TAB PO BID for 30 Days, #60 TAB Prov: HARDIK GAY NP 06/17/25 Norgestimate-Ethinyl Estradiol (Ortho Tri-Cyclen) [id number] 28 Tablet 1 TAB PO DAILY for 28 Days, #28 TAB 0 Refills Prov: HARDIK GAY NP 06/17/25 Education Educated: Patient Educated regarding: diagnosis Signature Scribe Signature: reid Attestation: Scribed for Hardik Gay Frontload Driver by Hardik Garrett NP . 06/17/25 16:06 HARDIK GAY NP Jun 17, 2025 16:06
[2025-06-17] MEDS ORDERED: FERR325T28 PO (16:14)
[2025-06-17 16:24] VITALS: BP 123/62; PULSE 78; RESP 19; TEMP 97.9; O2SAT 95
== END 2025-06-17 16:26 | disposition home or self-care (01) ==
LOC: ER 13:29
DX: N93.9 Abnormal uterine and vaginal bleeding, unspecified (principal); N92.0 Excessive and frequent menstruation with regular cycle; G89.29 Other chronic pain; Z87.19 Personal history of other diseases of the digestive system; Z79.899 Other long term (current) drug therapy
CPT/HCPCS: 36415; 80048; 85025; 99283

== ENCOUNTER 2025-09-29 18:21 | Emergency (ER) | payer MEDICAID ==
[~2025-09-29] VITALS: Ht 160 cm; Wt 103.8 kg
[~2025-09-29 18:21] MED LIST changes: +NORG1TAB90 PO
[2025-09-29 19:12] LABS: MEAN PLATELET VOLUME 7.8 FL (7.4-10.4); RED CELL DISTRIBUTION WIDTH 14.0 % (11.5-14.5)
--- NOTE | 2025-09-29 19:40 | Physician Documentation ---
History of Present Illness ~ Chief Complaint: Blood in Urine Stated Complaint: BLEEDING Time Seen by MD: 20:29 Primary Medical Doctor: [facility] This is a 50-year-old female who presents with dysuria and low back pain, patient reports who was recently seen for urinary tract infection and placed on nitro for on though symptoms persist. Patient reports symptoms has been intermittently present for the past two weeks. Reports no fever. Patient reports that she was told by her primary care provider that she had blood in her urine on urinalysis. History as above. She states she has been placed on nitrofurantoin although she reports that her doctor does not think she has a urinary tract infection. She reports that her doctor told her to stop taking her iron. She has been in the process of getting referred to OBGYN for her irregular menstrual cycles. Medication Reconciliation Allergies: Coded Allergies: No Known Allergies (Unverified , 02/24/25) Scheduled Atorvastatin Calcium (Atorvastatin Calcium), 1 TABLET PO DAILY Azithromycin (Zithromax), 1 DOSPAK PO UD Benzonatate (Tessalon Perle), 1 CAP PO Q8H Docusate Sodium (Dulcolax Stool Softener), 1 CAP PO DAILY Gentamicin Sulfate (Gentak), 2 DROP EACHEYE TID Hydrochlorothiazide (Hydrochlorothiazide), 1 TAB PO DAILY Hydrocortisone Acetate (Anusol-Hc), 1 SUPP RC Q12H Methocarbamol (Methocarbamol), 1 TAB PO Q8H Naproxen (Naproxen), 1 TAB PO Q12H Nitrofurantoin Monohyd/M-Cryst (Macrobid 100 mg Capsule), 1 CAP PO Q12H Norgestimate-Ethinyl Estradiol (Ortho Tri-Cyclen), 1 TAB PO DAILY Nystatin/Triamcin Cream* (Mycolog Cream*), 1 APPLIC TP BID Tamsulosin Hcl* (Flomax*), 1 CAP PO DAILY Scheduled PRN Hydrocodone/Acetaminophen ([place] 5-325 Tablet), 1-2 TABLET PO Q4H PRN for pain Meclizine HCl (Meclizine HCl), 1 TABLET PO TID PRN PRN for vertigo Ondansetron (Zofran Odt), 8 MG PO QID PRN for nausea/vomiting Ondansetron Hcl (Zofran), 1 TABLET PO Q6H PRN for nausea/vomiting Past Medical History Past Medical History: Headache, Constipation, Hemorrhoids, *RENAL/*, UTI, Chronic Pain, Extremity Fracture Past Surgical History: Alcohol Use: None Drug Use: none Lives with: Family Lives In: Home Occupation: employed Review of Systems ROS As stated above in the HPI, otherwise all systems are reviewed and negative. Physical Exam Vital Signs: Temperature: 97.0, Source: Temporal, Heart Rate: 98, Respiratory Rate: 18, BP: 172/88, Pulse Oximetry: 99, Weight: 103.800 Oxygen Flow Rate: 0 Physical Exam General: Patient is awake, alert, oriented x4 in no acute distress Head: Normocephalic and atraumatic. Eyes: Conjunctival normal. EOMI. PERRL. ENT: Mucous membranes moist. Neck: Supple, trachea is midline. Chest: Clear to auscultation bilaterally without rales, rhonchi, or wheezes. There is no accessory muscle use or retractions. Cardiac: RRR without murmurs, gallops, or rubs. Abd: Soft, nondistended, nontender, with normoactive bowel sounds. No guarding, rebound, or rigidity. Progress Results/Orders Results/Orders Vital Signs 09/29/25 18:25 Temp 97.0 Pulse 98 Resp 18 B/P (MAP) 172/88 Pulse Ox 99 O2 Flow Rate 0 Laboratory Tests Test 09/29/25 18:54 09/29/25 19:36 White Blood Count 9.0 Red Blood Count 3.99 L Hemoglobin 11.2 L Hematocrit 33.3 L Mean Corpuscular Volume 83.7 Mean Corpuscular Hemoglobin 28.2 Mean Corpuscular Hemoglobin Concent 33.7 Red Cell Distribution Width 14.0 Platelet Count 335 Mean Platelet Volume 7.8 Neutrophils (%) (Auto) 69.3 Lymphocytes (%) (Auto) 22.5 Monocytes (%) (Auto) 6.2 Eosinophils (%) (Auto) 1.1 Basophils (%) (Auto) 0.9 Neutrophils # (Auto) 6.2 Lymphocytes # (Auto) 2.0 Monocytes # (Auto) 0.6 Eosinophils # (Auto) 0.1 Basophils # (Auto) 0.1 CBC Comment Sodium Level 142 Potassium Level 4.3 Chloride Level 108 H Carbon Dioxide Level 26.0 Anion Gap 8 Blood Urea Nitrogen 8 Creatinine 0.71 Estimated GFR/1.73 m2 88 BUN/Creatinine Ratio 11.3 Glucose Level 106 H Calcium Level 8.7 Total Bilirubin 0.3 Aspartate Amino Transf (AST/SGOT) 23 Alanine Aminotransferase (ALT/SGPT) 25 Alkaline Phosphatase 88 Total Protein 6.5 Albumin 3.0 L Globulin 3.5 Albumin/Globulin Ratio 0.9 L Chemistry Comments Urine Specimen Description Cln catch midstream Urine Color Brown Urine Clarity Cloudy Urine pH 5.5 Urine Specific [place] 1.015 Urine Protein 30 H Urine Glucose (UA) Negative Urine Ketones Negative Urine Occult Blood Large H Urine Nitrite Negative Urine Bilirubin Negative Urine Urobilinogen 0.2 Urine Leukocyte Esterase Negative Urine RBC Tntc Urine WBC None seen Urine Squamous Epithelial Cells Few Urine Bacteria Few Urine Culture Indicated Not ind Volume Urine Centrifuged 10 ml Urine Comment Medical Decision Making Additional information obtaine: old records Findings MSE performed in triage and patient returned to ED lobby by nursing staff to await available ED room Patient presents to the emergency room with chief complaint of hematuria as per HPI. Differentials include but are not limited to bladder cancer, urinary tract infection, anemia, kidney stone. CBC is reassuring for no significant anemia. That has unclear if patient's hematuria is actually from her vagina or not nonetheless she does need follow up. She has been referred to OBGYN. She is p ut on Macrobid by her primary care although she reports that her primary care told her that she would not have a urinary tract infection. Urine is clean today. I have specifically discussed the possibility of cancer in the need to follow up in the patient has a acknowledged this. Urinary Diff Dx:Considerations: Include: AAA, , Aortic dissection, Appe ndicitis, Bowel obstruction, Cholelithiasis, Choleangitis, DJD, Ectopic , Hepatitis, HNP, Impaction, Intrauterine , Musculoskeletal pain, Ovarian torsion, Pancreatitis, PID, Post-Op complication, Pyelonephritis, Renal failure, Strain, Urinary Obstruction, Urolithiasis, Urinary retention, UTI, Vaginitis, Other Genital Diff Dx:Considerations: Include: -Complete, - Incomplete, -Inevitable, Ablortion-Missed, -Threatened, Abruptio placentae, Bartholin abscess, Bartholin cyst, Blood loss anemia, Constipation, Cervicitis, Dsymenorrhea, Ectopic , Foreign body, Hormonal, Hidradenitis suppurativa, Intrauterine , Menorrhagia, Menometrorrhagia, Menstrual bleeding, Myomatous uterus, Perianal abscess, Physiologic discharge, Pinworms, PID, Placenta previa, , Precipitous Hct, Trauma, UTI, Vaginitis(osis)-Atrophic, Vaginitis, Vaginitis(osis)-Bacterial, Vaginitis(osis)- Candidal, Vaginitis(osis)-Contact, Vaginitis(osis)-Herpes, Vaginitis(osis)- Trich., Other Departure Disposition: HOME / SELF CARE / HOMELESS Impression: Primary Impression: Hematuria Condition: Stable Discharge Instructions: Hematuria, Adult Additional Instructions: Follow up with your doctor for hematuria for possible urologic referral that has blood in the urine can represent cancer. Referrals: NO PRIMARY CARE PROVIDER (PCP) Signature Scribe Signature: No scribe Attestation: The note accurately reflects work and decisions made by me.Dario Wolf MD 09/29/25 21:42 SALOME DELGADO Sep 29, 2025 19:40 DARIO WOLF MD Sep 29, 2025 20:38
[2025-09-29 20:03] LABS: CREATININE 0.71 MG/DL (0.40-0.90); TOTAL CARBON DIOXIDE 26.0 MMOL/L (24-32); eCRCL 80 ML/MIN; eGFR 88 ML/MIN
[2025-09-29 20:20] LABS: LEUKOCYTE ESTERASE ,URINE NEGATIVE (Neg); NITRITES, URINE NEGATIVE (Neg); OCCULT BLOOD,URINE LARGE (Neg)
[2025-09-29 21:11] LABS: UA COLLECTION TYPE CLN CATCH MIDSTREAM
[2025-09-29 21:15] LABS: SQUAMOUS EPITHELIAL CELL,UR FEW /LPF (FEW)
[2025-09-29 21:52] VITALS: BP 168/76; PULSE 88; RESP 14; TEMP 97; O2SAT 98
== END 2025-09-29 21:54 | disposition home or self-care (01) ==
LOC: ER 18:22
DX: R31.9 Hematuria, unspecified (principal); G89.29 Other chronic pain; Z87.19 Personal history of other diseases of the digestive system; Z87.440 Personal history of urinary (tract) infections; Z79.899 Other long term (current) drug therapy; Z98.890 Other specified postprocedural states
CPT/HCPCS: 36415; 80053; 81001; 85025; 99283

== ENCOUNTER 2025-10-11 11:04 | Emergency (ER) | payer MEDICAID ==
[~2025-10-11] VITALS: Ht 160 cm; Wt 102.9 kg
--- NOTE | 2025-10-11 12:05 | RADIOLOGY REPORT ---
CLINICAL INDICATION: mechanical fall TECHNIQUE: DI KNEE LIMITED (AP/LAT) COMPARISON: None FINDINGS/IMPRESSION: : There is no evidence of acute fracture or dislocation. Talar superior and inferior patellar enthesophytes. No knee joint effusion.
--- NOTE | 2025-10-11 12:06 | RADIOLOGY REPORT ---
CLINICAL INDICATION: mechanical fall TECHNIQUE: DI HIP UNILATERAL 2-3 VIEWS COMPARISON: None FINDINGS/IMPRESSION: : There is no evidence of acute fracture or dislocation. Overlying soft tissues are intact. Visualized bowel gas is nonobstructed. 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
[2025-10-11] MEDS ORDERED: IBUP-864 PO (12:15)
--- NOTE | 2025-10-11 12:16 | Physician Documentation ---
History of Present Illness ~ Chief Complaint: Mechanical Fall Stated Complaint: FALL Time Seen by MD: 12:06 Primary Medical Doctor: [facility] Source: patient Mode of Arrival: POV Exam Limitations: no limitations HPI Patient was at [facility] and slipped and fell semi did the splits hurt right knee left hip is able to ambulate Tetanus within 5 Years?: No Medication Reconciliation Allergies: Coded Allergies: No Known Allergies (Unverified , 10/11/25) Scheduled Atorvastatin Calcium (Atorvastatin Calcium), 1 TABLET PO DAILY Azithromycin (Zithromax), 1 DOSPAK PO UD Benzonatate (Tessalon Perle), 1 CAP PO Q8H Docusate Sodium (Dulcolax Stool Softener), 1 CAP PO DAILY Gentamicin Sulfate (Gentak), 2 DROP EACHEYE TID Hydrochlorothiazide (Hydrochlorothiazide), 1 TAB PO DAILY Hydrocortisone Acetate (Anusol-Hc), 1 SUPP RC Q12H Methocarbamol (Methocarbamol), 1 TAB PO Q8H Naproxen (Naproxen), 1 TAB PO Q12H Nitrofurantoin Monohyd/M-Cryst (Macrobid 100 mg Capsule), 1 CAP PO Q12H Norgestimate-Ethinyl Estradiol (Ortho Tri-Cyclen), 1 TAB PO DAILY Nystatin/Triamcin Cream* (Mycolog Cream*), 1 APPLIC TP BID Tamsulosin Hcl* (Flomax*), 1 CAP PO DAILY Scheduled PRN Hydrocodone/Acetaminophen ([place] 5-325 Tablet), 1-2 TABLET PO Q4H PRN for pain Meclizine HCl (Meclizine HCl), 1 TABLET PO TID PRN PRN for vertigo Ondansetron (Zofran Odt), 8 MG PO QID PRN for nausea/vomiting Ondansetron Hcl (Zofran), 1 TABLET PO Q6H PRN for nausea/vomiting Past Medical History Past Medical History: Headache, Constipation, Hemorrhoids, *RENAL/*, UTI, Chronic Pain, Extremity Fracture Past Surgical History: Alcohol Use: None Drug Use: none Lives with: Family Lives In: Home Occupation: employed Review of Systems All Other Systems at this time: Reviewed and Negative Musculoskeletal: Reports: see HPI Physical Exam Vital Signs: RN Vital Signs have been reviewed: Yes, Temperature: 97.1, Source: Temporal, Heart Rate: 113, Respiratory Rate: 15, BP: 148/88, Pulse Oximetry: 99, Weight: 102.900 Oxygen Flow Rate: 0 Physical Exam General: Alert, no apparent distress. HEENT: moist mucous membranes. Neck: Full range of motion. Respiratory: No respiratory distress speaking in full sentences Chest: No accessory muscle use. Cardiovascular: Appears well perfused Neurologic: Oriented x4. Extremity: Good patellar tracking to right knee no obvious effusion or bruising deformity Psychiatric: Normal mood and affect. Skin: Normal color, warm and dry. No edema, no ecchymosis. Progress Results/Orders Results/Orders Vital Signs 10/11/25 11:08 Temp 97.1 Pulse 113 Resp 15 B/P (MAP) 148/88 Pulse Ox 99 O2 Flow Rate 0 EKG/XRAY/CT/US/VASC/MRI Bone/Soft Tissue X-Ray (Ext.) #1: Additional Comment CLINICAL INDICATION: mechanical fall TECHNIQUE: DI KNEE LIMITED (AP/LAT) COMPARISON: None FINDINGS/IMPRESSION: : There is no evidence of acute fracture or dislocation. Talar superior and inferior patellar enthesophytes. No knee joint effusion. Electronically Signed by:ANDREEA BOLAND MD Date & Time: 10/11/25 1203 Dictated by: ANDREEA BOLAND MD Dictation date and time: 10/11/25 113 Primary Care Provider: NO PRIMARY CARE PROVIDER cc: ROSELINE DIA MD ~ Bone/Soft Tissue X-Ray (Ext.) #2: Additional Comment CLINICAL INDICATION: mechanical fall TECHNIQUE: DI HIP UNILATERAL 2-3 VIEWS COMPARISON: None FINDINGS/IMPRESSION: : There is no evidence of acute fracture or dislocation. Overlying soft tissues are intact. Visualized bowel gas is nonobstructed. 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 Electronically Signed by:ANDREEA BOLAND MD Date & Time: 10/11/25 1204 Dictated by: ANDREEA BOLAND MD Dictation date and time: 10/11/25 1135 Primary Care Provider: NO PRIMARY CARE PROVIDER cc: ROSELINE DIA MD ~ Medical Decision Making Additional information obtaine: N/A Findings Fall x-rays to evaluate for any osseous abnormality including fracture which only shows degenerative changes. Ibuprofen prescribed patient to follow up with primary care Differential Dx:Considerations: Include: Fracture(s), Contusion(s), Other Departure Time of Disposition: 12:14 Disposition: 01 HOME / SELF CARE / HOMELESS Impression: Primary Impression: Fall Additional Impressions: Hip pain Knee pain Condition: Stable Discharge Instructions: Fall Prevention in the Home, Adult, [id number] Additional Instructions: Ibuprofen as needed for [id number] pain. Follow up with primary care for further treatment and evaluation as needed Referrals: NO PRIMARY CARE PROVIDER (PCP) Prescriptions Ibuprofen (Ibu) 800 Mg Tablet 1 TAB PO Q8H for 7 Days, #21 TAB 0 Refills Prov: LEXI GUEVARA NP 10/11/25 Education Educated: Patient Educated regarding: diagnosis, treatment, need for follow up Signature Scribe Signature: No scribe Attestation: The note accurately reflects work and decisions made by me.Lexi LEONARD 10/11/25 12:16 LEXI GUEVARA NP Oct 11, 2025 12:16
[2025-10-11] MEDS: ibuprofen tablet 400 MG TABLET PO ONE (12:22)
[2025-10-11 12:27] VITALS: BP 144/82; PULSE 89; RESP 17; TEMP 97.1; O2SAT 98
== END 2025-10-11 12:26 | disposition home or self-care (01) ==
LOC: ER 11:04
DX: M25.561 Pain in right knee (principal); M25.552 Pain in left hip; G89.29 Other chronic pain; Z87.19 Personal history of other diseases of the digestive system; Z87.440 Personal history of urinary (tract) infections; Z79.899 Other long term (current) drug therapy; Z98.890 Other specified postprocedural states; W01.0XXA Fall on same level from slipping, tripping and stumbling without subsequent striking against object, initial encounter; Y93.89 Activity, other specified; Y92.89 Other specified places as the place of occurrence of the external cause; Y99.8 Other external cause status
CPT/HCPCS: 73502; 73560; 99284

== ENCOUNTER 2025-10-13 14:55 | Emergency (ER) | payer MEDICAID ==
[~2025-10-13] VITALS: Ht 160 cm; Wt 103.4 kg
[~2025-10-13 14:55] MED LIST changes: +IBUP-864 PO
[2025-10-13 15:13] VITALS: BP 147/72; PULSE 90; RESP 16; O2SAT 99
--- NOTE | 2025-10-13 18:01 | Physician Documentation ---
HPI ~ General Chief Complaint: Tooth Problem Stated Complaint: ABSCESSED TOOTH Time Seen by MD: 17:42 Primary Medical Doctor: [facility] History of Present Illness HPI Comment This is a 50-year-old female who presents with bilateral posterior upper dental pain, patient reports that she is awaiting a dentist appointment and has been treated a proximally two weeks prior for a dental infection to her right upper rear molar with some improvement though in the last two days pain has returned to the right tooth an is now also present in the left side rear molar. Patient reports no fever. Patient reports no difficulty breathing or swallowing. Medication Reconciliation Allergies: Coded Allergies: No Known Allergies (Unverified , 10/13/25) Scheduled Amox Tr/Potassium Clavulanate 875/125 MG (Augmentin 875/125 MG), 1 TAB PO BID Atorvastatin Calcium (Atorvastatin Calcium), 1 TABLET PO DAILY Azithromycin (Zithromax), 1 DOSPAK PO UD Benzonatate (Tessalon Perle), 1 CAP PO Q8H Docusate Sodium (Dulcolax Stool Softener), 1 CAP PO DAILY Gentamicin Sulfate (Gentak), 2 DROP EACHEYE TID Hydrochlorothiazide (Hydrochlorothiazide), 1 TAB PO DAILY Hydrocortisone Acetate (Anusol-Hc), 1 SUPP RC Q12H Ibuprofen (Ibu), 1 TAB PO Q8H Ibuprofen (Ibuprofen), 1 TAB PO Q8H Methocarbamol (Methocarbamol), 1 TAB PO Q8H Naproxen (Naproxen), 1 TAB PO Q12H Nitrofurantoin Monohyd/M-Cryst (Macrobid 100 mg Capsule), 1 CAP PO Q12H Norgestimate-Ethinyl Estradiol (Ortho Tri-Cyclen), 1 TAB PO DAILY Nystatin/Triamcin Cream* (Mycolog Cream*), 1 APPLIC TP BID Tamsulosin Hcl* (Flomax*), 1 CAP PO DAILY Scheduled PRN Acetaminophen (Acetaminophen), 2 TAB PO Q8H PRN for pain or fever Hydrocodone/Acetaminophen ([place] 5-325 Tablet), 1-2 TABLET PO Q4H PRN for pain Meclizine HCl (Meclizine HCl), 1 TABLET PO TID PRN PRN for vertigo Ondansetron (Zofran Odt), 8 MG PO QID PRN for nausea/vomiting Ondansetron Hcl (Zofran), 1 TABLET PO Q6H PRN for nausea/vomiting Past Medical History Past Medical History: Headache, Constipation, Hemorrhoids, *RENAL/*, UTI, Chronic Pain, Extremity Fracture Past Surgical History: Alcohol Use: None Drug Use: none Lives with: Family Lives In: Home Occupation: employed Review of Systems ROS As stated above in the HPI, otherwise all systems are reviewed and negative. Physical Exam Vital Signs: Temperature: 97.9, Source: Temporal, Heart Rate: 90, Respiratory Rate: 16, BP: 147/72, Pulse Oximetry: 99, Weight: 103.400 Oxygen Flow Rate: 0 Physical Exam VITALS: Reviewed and as above. GENERAL: Alert, nontoxic appearing, no apparent distress. HEENT: Generally poor dentition, multiple severely decayed and broken teeth, severe caries to several teeth, no gingival erythema or swelling. Multiple areas of posterior maxillary gingiva tender to palpation. No submandibular swelling or tongue elevation. No drooling. Uvula midline. RESPIRATORY: No increased work of breathing, no respiratory distress, speaking in full clear sentences Progress Results/Orders Results/Orders Completed Orders - [facility] [facility] Acetaminophen 325mg Tablet (Tylenol Tabl (10/13/25 18:10) Amox Tr/Potassium Clavulanate (Augmentin (10/13/25 18:10) Medications Received in ER Medications (Trade) Dose Ordered Sig/Taylor Route PRN Reason Start Time Stop Time Status Last Admin Dose Admin (Tylenol tablet) 975 mg ONCE ONCE PO 10/13/25 18:10 10/13/25 18:11 DC 10/13/25 18:17 975 MG (Augmentin 875-125mg tablet) 1 tab ONCE ONCE PO 10/13/25 18:10 10/13/25 18:11 DC 10/13/25 18:16 1 TAB Vital Signs 10/13/25 10/13/25 15:13 18:34 Temp 97.9 97.9 Pulse 90 Resp 16 B/P (MAP) 147/72 Pulse Ox 99 O2 Flow Rate 0 Medical Decision Making Additional information obtaine: N/A Findings This well appearing 50-year-old female presented with dental pain to the bilateral posterior molars. Based on history and physical exam I have low cl inical suspicion for peritonsillar abscess, uvulitis, deep tissue space infection of the head/neck, or impending airway compromise. There was no submandibular swelling or elevation of the tongue, the uvula was midline, patient is able to swallow fluids and secretion without difficulty, there is no increased work of breathing or noisy breathing. Based on presentation I am concerned for odontogenic infection and antibiotic treatment withAugmentin is indicated. Pain control with non-narcotic medications is appropriate at this time. Patient is otherwise well-appearing with stable vital signs and remaining physical exam benign and appropriate for outpatient follow up. Differential Dx:Considerations: Include: Alveolar fracture, Alveolar osteitis, ANUG, Facial Cellulitis, Periapical abscess, Peridontal abscess, Pulpitis, Tooth avulsion, Tooth eruption, Tooth Fracture, Trigeminal neuralgia, Tooth subluxation Departure Time of Disposition: 18:02 Disposition: 01 HOME / SELF CARE / HOMELESS Impression: Primary Impression: Toothache Condition: Improved Discharge Instructions: Dental Pain Additional Instructions: Please take antibiotics as prescribed. Please use ibuprofen and Tylenol as prescribed every 8 hours for pain, take these medications with food to avoid stomach upset. Follow up as soon as possible with your dentist. Please follow up with your primary care provider in the next few days. Please return to the emergency department for any new or worsening concerning symptoms. Referrals: NO PRIMARY CARE PROVIDER (PCP) Prescriptions Acetaminophen (Acetaminophen) 500 Mg Tablet 2 TAB PO Q8H PRN for pain or fever for 10 Days, #10 TAB Prov: SALOME DELGADOP 10/13/25 Ibuprofen (Ibuprofen) 800 Mg Tablet 1 TAB PO Q8H for pain for 10 Days, #30 TAB 0 Refills Prov: SALOME DELGADO [facility] 10/13/25 Amox Tr/Potassium Clavulanate 875/125 MG (Augmentin 875/125 MG) 875 Mg-125 Mg Tablet 1 TAB PO BID for 7 Days, #14 TAB Prov: SALOME DELGADO [facility] 10/13/25 Education Educated: Patient Educated regarding: diagnosis, treatment, prognosis, need for follow up Signature Scribe Signature: No scribe Attestation: The note accurately reflects work and decisions made by me.AISHA Carter 10/13/25 18:06 SALOME DELGADO Oct 13, 2025 18:01
[2025-10-13] MEDS ORDERED: ACET-75 PO (18:06)
[2025-10-13] MEDS ORDERED: IBUP-1986 PO (18:06)
[2025-10-13] MEDS ORDERED: AMOX-580 PO (18:06)
[2025-10-13] MEDS: amox tr/potassium clavulanate 875/125mg TAB PO ONE (18:16)
[2025-10-13 18:34] VITALS: TEMP 97.9
== END 2025-10-13 18:37 | disposition home or self-care (01) ==
LOC: ER 14:56
DX: K08.89 Other specified disorders of teeth and supporting structures (principal); G89.29 Other chronic pain; Z87.19 Personal history of other diseases of the digestive system; Z87.440 Personal history of urinary (tract) infections; Z79.899 Other long term (current) drug therapy; Z98.890 Other specified postprocedural states
CPT/HCPCS: 99283